=== PATIENT | female | born 1990 | race Caucasian/White ===

== ENCOUNTER 2024-03-03 11:49 | Inpatient (IN) | payer SELFPAY ==
[2024-03-03] VITALS (22 sets, daily range): BP systolic 109–134; BP diastolic 50–88; PULSE 63–118; RESP 13–22; TEMP 36.2–37; O2SAT 95–100; BMI 39.6
[2024-03-03 12:10] LABS: Absolute Lymphocyte Count 1.99 X10^3/uL (0.83-4.51); Absolute Neutrophil Count 6.3 X10^3/uL (2.0-7.7); Basophil# 0.05 X10^3/uL; Basophil% 0.6 % (0-1); Eosinophil# 0.11 X10^3/uL; Eosinophils% 1.2 % (0-5); Hematocrit 39.1 % (37-47); Hemoglobin 13.1 g/dL (12.0-15.0); Lymphocyte # 1.99 X10^3/ul (0.83-4.51); Mean Corp Hgb Conc 33.5 g/dL (32-36); Mean Corpuscular Hgb 29.4 pg (27.0-32.0); Mean Corpuscular Volume 87.9 fL (81-99); Mean Platelet Vol. 10.7 fl (6.2-12.0); Monocyte# 0.53 X10^3/uL; Monocyte% 5.9 % (0-10); NRBC Flagged by Analyzer 0 % (0-5); Neutrophil # 6.28 X10^3/uL (2.7-7.7); Neutrophil % 69.5 % (47-70); Platelet Count 251 K/mm3 (150-450); RBC Distribution Width CV 13.8 % (11.6-14.6); RBC Distribution Width SD 44.2 fl (35.1-43.9); Red Blood Count 4.45 M/mm3 (4.2-5.4)
[2024-03-03] MEDS: Sodium Citrate/Citric Acid 30 ML UDC PO (12:17)
[2024-03-03] MEDS: Acetaminophen 500 MG Tablet PO (12:17)
[2024-03-03] MEDS: Lactated Ringers 1,000 ML 999 ML IV (12:17)
[2024-03-03] MEDS: Cefazolin 2 GM in 0.9% Normal Saline (100mL Bag) 100 ML IV (12:39)
[2024-03-03 13:02] LABS: Syphilis Antibodies Non-reactive
--- NOTE | 2024-03-03 13:15 | HP.PCM.OB_ITS ---
HPI - General General Date of Admission: 03/03/24 Date of Service: 03/03/24 Chief Complaint: NRFHR HPI Narrative POLO GREENWOOD, is a 33 F who presents from the office recurrent late decelerations on NST. Mild contractions. Membranes intact. Upon arrival IV was place and IVF bolus given. FHR continued with recurrent late decelerations. Discussed with patient likely compromise and the recommendation for . Reviewed R/B of procedure. pt agreeable. She was them immediately prepped for the OR Maternal Data Information Final MARIBEL: 03[birth year] Gestational age: 39 PFSH PFSH Medical History History of macrosomia in infant in prior , currently Grand multiparity Obesity Poor historian Limited residential Medications ?Medication ?Instructions ?Recorded ?Last Taken ?Type NK 03/03/24 Unknown History Allergy/AdvReac Type Severity Reaction Status Date / Time No Known Allergies Allergy Verified 03/03/24 11:41 Surgical History History of surgery Social History Smoking Status: Never smoker History 8 Elective abortions Hx Para 6 Spontaneous abortions Hx # Term Pregnancies Ectopic pregnancies Hx # Pregnancies Multiple births # of living children NST FHR Rate Baby A Baseline: 150 Variability:: Minimal Accelerations:: None Decelerations:: Late NST Reactive:: Non-Reactive FHR Category:: Category II Uterine Activity:: q5-7 ROS Constitutional Constitutional: Denies fatigue, fever(s) or malaise Eyes Eyes: Denies change in vision ENT HEENT: Denies dizziness or headache(s) Cardiovascular Cardiovascular: Denies chest pain, dyspnea or lightheadedness Respiratory/Chest Respiratory/Chest: Denies cough or dyspnea Gastrointestinal Gastrointestinal: Denies change in bowel habits Genitourinary Genitourinary: Denies burning urination or genital lesions Integumentary Integumentary: Denies rash Neurologic Neurologic: Denies confusion, dizziness, headache(s), numbness or weakness Vital Signs Vital Signs Vital Signs: 03/03/24 11:32 03/03/24 11:32 03/03/24 11:46 Pulse Rate 87 Blood Pressure 134/63 H BP Systolic 134 BP Diastolic 63 Pulse Ox 97 03/03/24 11:46 Pulse Rate 73 Blood Pressure BP Systolic BP Diastolic Pulse Ox Weight Weight: 104.78 kg Body Mass Index (BMI) 39.6 Physical Exam Const alert and no apparent distress General Appearance: cooperative HEENT normocephalic Resp normal respiratory effort GI soft to palpation GI Narrative: gravid, nontender, appropriate for gestational age Extremity no calf tenderness General Extremity: edema Skin no wounds Rashes: No rashes noted Psych activity/motor behavior normal Labs Labs Labs: Blood Type A POSITIVE Antibody Screen NEGATIVE Hct 39.1 % (37-47) Hgb 13.1 g/dL (12.0-15.0) Syphilis Total Ab Non-reactive Assessment & Plan (1) Non-reassuring status: (2) 39 weeks gestation of : PLAN: Plan Primary
--- NOTE | 2024-03-03 13:15 | EX.PCM.OBRPT ---
Assessment & Plan (1) 39 weeks gestation of : (2) Non-reassuring status: Maternal Data Information Final MARIBEL: 03[birth year]10/24 Gestational age: 39 Operative Report (OB) Cecarean Details Procedure Type: low transverse Date of Procedure: 03/03/24 Procedure Start Time: 19:57 Procedure Stop Time: 13:18 Time of Delivery: 12:52 Pre-Operative Diagnosis: Nonreassuring Status Post-Operative Diagnosis: Same as Pre-operative diagnosis Classification: PRABHA Type of Anesthesia: Spinal Antibiotic Given: Ancef 2 grams IV x1 Drain: Arcos to straight drain Estimated Blood Loss: 600 cc Findings Description of surgery: Patient taken to the OR where spinal anesthesia was placed. Arcos was placed in the bladder. She was prepped and draped in the normal sterile fashion. A Pfannenstiel incision was made and carried down to the underlying fascia. The fascia was incised in the midline and extended laterally. The fascia was dissected from the muscle. The muscles divided in the midline. The peritoneum was entered bluntly and extended manually. A bladder blade was placed. A bladder flap was created. A low transverse incision was made and extended bluntly. Meconium was present with ROM. The head was elevated to the incision. The shoulders delivered easily. There was a cord around the neck x 1. The infant cried upon delivery. The cord was cut and clamped. The placenta was delivered with karon traction. The uterus was exteriorized and cleared of all clot and debris. The incision was repaired with 1-0 Vicryl x 2. The uterus was returned the abdomen, The gutter cleared of all clots. The peritoneum was closed with 2-0 Monocryl. The fascia was closed with 1-0 Vicryl. The subcutaneous tissue was reapproximated with 2-0 Monocryl The skin was closed with 4-0. I performed the major parts of the procedure with the RFNA assisting with retraction and closing the skin. The sponge lap and needle count was correct x 2 Surgical findings: Presentation: Vertex Amniotic Membrane Rupture Type: Artificial Amniotic Fluid Description: Moderate meconium Placental Delivery Description: Expressed Placenta Disposition: [facility] Specimen collected: No Cord Vessel Description: 3 Vessels Cord Entanglement: Around neck x 1, tight Nuchal Cord Compression: With compression Cord Gases: ABG and VBG Infant A gender: Male (1 minute): 6 (5 minute): 8 Delayed Cord Clamping: No Emergency Spill Response Technician manuscript editor: Yes Library Information Technician: Thierno Pride Tasks completed by therapeutic assistant: Opening & closing and Retracting Additional administrative assistant receptionist?: No Complications Complications: No
[2024-03-03] MEDS: Oxytocin 15 Units/NS 250ml 15 UNITS/250 ML IV.SOLN 83 UNITS IV (13:50)
[2024-03-03] MEDS: Ketorolac 30 MG/ML Syringe IV ×2 (14:55→20:42)
--- NOTE | 2024-03-03 16:49 | NURSING ---
1616 pt assisted OOB pt gait steady- pt to wheelchair and then to SCN to see
--- NOTE | 2024-03-03 17:27 | NURSING ---
1720 pt in SCN doing skin to skin with infant- unable to check fundus- pt denies feeling any gushes
[2024-03-03] MEDS: Acetaminophen 500 MG Tablet 1000 MG PO (18:29)
--- NOTE | 2024-03-03 18:49 | NURSING ---
pt up walking around in the room gait steady
--- NOTE | 2024-03-03 19:17 | NURSING ---
pt ambulate to [facility]
[2024-03-03] MEDS: 0.9% Saline Lock 10 ML Syringe IV (20:42)
[2024-03-04 00:34] VITALS: BP 124/73; PULSE 81; RESP 16; O2SAT 97
[2024-03-04] MEDS: Acetaminophen 500 MG Tablet 1000 MG PO ×2 (00:37→06:37)
[2024-03-04] MEDS: Ketorolac 30 MG/ML Syringe IV (03:03)
[2024-03-04 03:09] VITALS: PULSE 89; RESP 16; O2SAT 100
--- NOTE | 2024-03-04 04:22 | PCM.PN.OB ---
Subjective Subjective Baby in [facility] and is going to be transferred to [facility] for rehab medicine. Pt requests discharge to go with him. Pain controlled. Bleeding light. Reviewed precautions. Objective Data Objective Data Vital Signs: Vital Signs Temp Pulse Resp BP Pulse Ox O2 Del Method 97.2 F L 89 16 124/73 H 100 Room Air 03/03/24 15:00 03/04/24 03:09 03/04/24 03:09 03/04/24 00:34 03/04/24 03:09 03/04/24 03:09 Oxygen Delivery Method Room Air Weight: 104.78 kg Body Mass Index (BMI) 39.6 Intake & Output: Intake and Output for Last 24 Hours 03/02/24 03/03/24 03/04/24 23:59 23:59 23:59 Intake Total 1760 / 1760 Output Total 1400 / 1400 400 / 400 Balance 360 / 360 -400 / -400 Lab / Micro Data 03/03/24 11:55 Labs: Laboratory Results - last 24 hr 03/03/24 11:55: WBC 9.0, RBC 4.45, Hgb 13.1, Hct 39.1, MCV 87.9, MCH 29.4, MCHC 33.5, RDW Std Deviation 44.2 H, RDW Coeff of Manisha 13.8, Plt Count 251, MPV 10.7, Immature Gran % (Auto) 0.800, Neut % (Auto) 69.5, Lymph % (Auto) 22.0, [place] % (Auto) 5.9, Eos % (Auto) 1.2, Baso % (Auto) 0.6, Absolute Neuts (auto) 6.3, Absolute Lymphs (auto) 1.99, Nucleated RBC % 0, Syphilis Total Ab Non-reactive, Blood Type A POSITIVE, Antibody Screen NEGATIVE ROS Constitutional Constitutional: Denies fatigue, fever(s) or malaise Eyes Eyes: Denies change in vision ENT HEENT: Denies dizziness or headache(s) Cardiovascular Cardiovascular: Denies chest pain, dyspnea or lightheadedness Respiratory/Chest Respiratory/Chest: Denies cough or dyspnea Gastrointestinal Gastrointestinal: Denies change in bowel habits Genitourinary Genitourinary: Denies burning urination or genital lesions Integumentary Integumentary: Denies rash Neurologic Neurologic: Denies confusion, dizziness, headache(s), numbness or weakness Physical Exam Const alert General Appearance: cooperative GI GI Narrative: soft, moderate distention, fundus firm, appropriately tender. Abdominal bandage clean dry and intact Assessment & Plan (1) S/P : PLAN: Plan Discharge with baby. Needs appointment 1-2 weeks in office
--- NOTE | 2024-03-04 04:43 | NURSING ---
patients IV removed due to patient being discharged. Baby is being transferred from [facility] to [facility]. Patient requested to be discharged. Dr. Perez went to bedside to assess patient.
--- NOTE | 2024-03-04 04:44 | PCM.DC.SUM ---
Providers Date of Admission: 03/03/24 Date of Discharge: 03/04/24 Primary Care Physician: No Primary Care Phys Reason For Visit: PRIMARY C SECTION/CSSECTION DELIVERY Diagnosis Discharge Diagnosis (1) S/P : Status: Acute Code(s): Z98.891 - History of uterine scar from previous surgery Plan Discharge with baby. Needs appointment 1-2 weeks in office Medications at Discharge Home Medications NK 03/03/24 Hospital Course Operations section Procedures None Summary of Care Provided Minutes Spent on Discharge: 20 Hospital Course: Sent from office with Cat 2 tracing. No improvement with IV fluids. Urgent primary . Delivery uncomplicated. Post uncomplicated. Infant transferred to [facility]. Mom request discharge to accompany Physical Exam Const alert General Appearance: cooperative GI GI Narrative: soft, moderate distention, fundus firm, appropriately tender. Abdominal bandage clean dry and intact Weight / BMI Weight Weight: 104.78 kg Body Mass Index (BMI) 39.6 ABG / Lab / Microbiology Data 03/03/24 11:55 Laboratory: Laboratory Results - last 24 hr 03/03/24 11:55: WBC 9.0, RBC 4.45, Hgb 13.1, Hct 39.1, MCV 87.9, MCH 29.4, MCHC 33.5, RDW Std Deviation 44.2 H, RDW Coeff of Manisha 13.8, Plt Count 251, MPV 10.7, Immature Gran % (Auto) 0.800, Neut % (Auto) 69.5, Lymph % (Auto) 22.0, [place] % (Auto) 5.9, Eos % (Auto) 1.2, Baso % (Auto) 0.6, Absolute Neuts (auto) 6.3, Absolute Lymphs (auto) 1.99, Nucleated RBC % 0, Syphilis Total Ab Non-reactive, Blood Type A POSITIVE, Antibody Screen NEGATIVE D/C Instructions Discharge Diet: No restrictions Discharge Activity: May Not Drive May resume sexual activity in: 4-6 weeks Lifting Restrictions: 20 pounds Additional Activity Instructions: Nothing in the vagina for 4-6 weeks. You may return to work/school in 6 weeks. Call your doctor if your incision/area has: Continuous Slow Oozing, Sudden Increased Bleeding, Increased Pain/ Swelling, Increased Redness and Foul Smelling Discharge Call your doctor if you observe: Fever of 101 or Higher and Using more than 1 pad per hour (for 2 hours) Suture Line Care: Avoid Pulling/Pushing and Avoid Pinching/Bending Cleanse incision/area with: Keep Dressing Clean & Dry DC O2, CPAP, BIPAP Needs Home O2 Discharge instructions: No Please Follow Up With: Amalia Pavon MD When: Call to make an appointment for an incision check in 1-2 [phone]. You will need a post check in 6 weeks. Meaningful Use Info Meaningful Use Meaningful Use Diagnoses (Choose all that apply): None applicable Ischemic Stroke Statin Dosing Therapy Reference: STATIN DOSE THERAPY REFERENCE: * Patients > 75 years receive moderate or high dose statin therapy. * Patients 75 years or YOUNGER should receive HIGH intensity statin dose unless contraindicated. You will be required to document reason for non-treatment if statin daily dose does not meet guidelines. HIGH DOSE STATIN THERAPY DAILY Atorvastatin > than or = to 40 mg Rosuvastatin > than or = to 20 mg Amlodipine + Atorvastatin > than or = to 2.5/40 mg Ezetimibe + Simvastatin 10/80 mg Simvastatin 80mg Discharge Plan Admission Admit Date/Time: 03/03/24 11:49 Attending Provider: Gloria Perez Primary Care Provider: Care Physician,Sherri Primary Discharge Orders/Prescriptions Prescriptions: No Action NK Referrals / Follow Up: Care Physician,No Primary [Primary Care Provider] -
== END 2024-03-04 06:47 | disposition home or self-care (01) | DRG 788 ==
LOC: WPOUT 11:55 → WP 11:56
PROVIDERS: Admitting Provider Obstetrics & Gynecology; Referring Provider Obstetrics & Gynecology; Visit Provider Obstetrics & Gynecology
DX: O76 Abnormality in fetal heart rate and rhythm complicating labor and delivery (principal); O69.1XX0 Labor and delivery complicated by cord around neck, with compression, not applicable or unspecified; Z37.0 Single live birth; O77.0 Labor and delivery complicated by meconium in amniotic fluid; Z3A.39 39 weeks gestation of pregnancy; Z87.59 Personal history of other complications of pregnancy, childbirth and the puerperium
CPT/HCPCS: 59025; 59050; 85025; 86780; 86850; 86900; 86901; 99221; A4216; G0378; J2405